=== PATIENT | male | born 1935 ===

== ENCOUNTER 2017-12-27 06:13 | Day surgery (SDC) | payer MEDICARE ==
[2017-12-27 07:28] VITALS: BMI 21.9
--- NOTE | 2017-12-28 23:53 | CARD ---
APPROVED REPORT EKG Measurement Heart [id number] <Conclusion> Normal sinus rhythm Prolonged QT Abnormal ECG
--- NOTE | 2018-01-04 04:29 | PROCN ---
DATE OF PROCEDURE: 12/27/2017 PROCEDURE: Tilt-table test report. INDICATIONS: Dizziness. METROLOGY MANAGER: Mo Macario MD DESCRIPTION OF PROCEDURE: The patient was put on the tilt table and tilted at 30 degrees for 5 minutes and 60 degrees for 15 minutes. Blood pressure and heart rate response were monitored every 3 minutes. There was a 27 mmHg drop in blood pressure and 60 beats per minute increase in heart rate during the test. The patient tolerated the procedure well. The patient was asymptomatic throughout the test. IMPRESSION: Orthostatic hypotension. The patient was asymptomatic throughout the test. Mo Macario MD
== END 2017-12-27 08:15 | disposition home or self-care (01) ==
LOC: C.CATHLAB 06:13
PROVIDERS: ATTEND Internal Medicine
DX: R42 Dizziness and giddiness (principal); I95.1 Orthostatic hypotension; I10 Essential (primary) hypertension; N40.0 Benign prostatic hyperplasia without lower urinary tract symptoms